=== PATIENT | female | born 1970 | race Two or more races ===

== ENCOUNTER 2023-10-17 08:30 | Inpatient (IN) | payer OTHER ==
[~2023-10-17] VITALS: Ht 165.1 cm; Wt 117.9 kg
[2023-10-17] MEDS ORDERED: PRILOSEC OTC20 MG PO (10:55)
[2023-10-17] MEDS ORDERED: COZAAR25 MG PO (10:55)
[2023-10-17] MEDS ORDERED: PEPCID40 MG PO (10:56)
[2023-10-17] MEDS ORDERED: NORVASC10 MG PO (10:56)
[2023-10-17 11:26] LABS: URINE APPEARANCE Cloudy; URINE BILIRRUBIN Negative (NEGATIVE); URINE BLOOD Negative; URINE COLOR Yellow; URINE GLUCOSE Negative (NEGATIVE); URINE LEUKOCYTE Small; URINE NITRATE Negative; URINE PROTEIN Negative (NEGATIVE); URINE UROBILINOGEN 0.2 E.U./dl
[2023-10-17 11:36] LABS: HEMATOCRIT 43.8 % (36.0-45.00); HEMOGLOBIN 14.6 g/dL (12.0-15.00); MEAN CELL VOLUME 87.1 fL (80.00-100.00); MEAN CORPUSCULAR HEMOGLOBIN 29.1 pg (27.00-32.0); MEAN CORPUSCULAR HGB CONC 33.4 g/dl (32.0-36.0); PLATELET COUNT 293 K/uL (150-450); RED BLOOD COUNT 5.02 M/uL (4.00-6.00); RED CELL DISTRIBUTION WIDTH 13.5 % (11.5-14.5)
[2023-10-17 11:36] LABS: URINE BACTERIA 6183.9 uL (0.0-1933); URINE RBC 39.2 uL (0.0-20.8); URINE WBC 74.3 uL (0.0-23.2)
[2023-10-17 11:47] LABS: PARTIAL THROMBOPLASTIN TIME 28.7 SECONDS (22.0-34.0); PROTHROMBIN TIME 10.5 SECONDS (9.0-11.5)
[2023-10-17 11:50] LABS: ALBUMIN 4.1 gm/dL (3.4-5.0); BILIRUBIN TOTAL 0.36 mg/dL (0.3-1.2); CREATININE SERUM 0.78 mg/dL (0.55-1.02); GFR 77.55; GLOBULINA 3.3 G/DL (2.4-3.5); POTASSIUM 4.65 mEq/L (3.5-5.1); TOTAL PROTEIN 7.4 gm/dL (6.4-8.2)
[2023-10-17 11:51] LABS: URINE CRYSTALS FEW /HPF
[2023-10-25 06:14] LABS: HEMATOCRIT 35.9 % (36.0-45.00); HEMOGLOBIN 12.2 g/dL (12.0-15.00); MEAN CELL VOLUME 85.6 fL (80.00-100.00); MEAN CORPUSCULAR HEMOGLOBIN 29.1 pg (27.00-32.0); PLATELET COUNT 213 K/uL (150-450); RED CELL DISTRIBUTION WIDTH 13.6 % (11.5-14.5)
[2023-10-25] MEDS ORDERED: DUI500 PO (07:41)
[2023-10-25] MEDS ORDERED: PERCOCET 5-3251 EACH PO (07:41)
[2023-10-25] MEDS ORDERED: ELIQUIS2.5 MG PO (07:41)
[2023-10-25 12:47] LABS: ALBUMIN 3.6 gm/dL (3.4-5.0); BILIRUBIN TOTAL 0.68 mg/dL (0.3-1.2); CALCIUM 8.4 mg/dL (8.5-10.1); CREATININE SERUM 0.74 mg/dL (0.55-1.02); GFR 82.41; GLOBULINA 2.8 G/DL (2.4-3.5); POTASSIUM 4.15 mEq/L (3.5-5.1); TOTAL PROTEIN 6.4 gm/dL (6.4-8.2)
[2023-10-26 07:03] LABS: HEMOGLOBIN 12.5 g/dL (12.0-15.00); MEAN CELL VOLUME 86.9 fL (80.00-100.00); MEAN CORPUSCULAR HEMOGLOBIN 29.4 pg (27.00-32.0); MEAN CORPUSCULAR HGB CONC 33.9 g/dl (32.0-36.0); PLATELET COUNT 211 K/uL (150-450); RED BLOOD COUNT 4.26 M/uL (4.00-6.00); RED CELL DISTRIBUTION WIDTH 13.3 % (11.5-14.5)
== END 2023-10-26 20:13 | DRG 470 ==
LOC: O/R 10-24 06:00 → SURH 10-24 06:00
PROVIDERS: ADMIT Orthopaedic Surgery; ATTEND Orthopaedic Surgery
PROC: 3E0F7SF Introduction of Other Gas into Respiratory Tract, Via Natural or Artificial Opening (ICD-10-PCS; 2023-10-24)
PROC: 0SRD0J9 Replacement of Left Knee Joint with Synthetic Substitute, Cemented, Open Approach (ICD-10-PCS; principal; 2023-10-24 12:30)
DX: M17.12 Unilateral primary osteoarthritis, left knee (principal); M22.12 Recurrent subluxation of patella, left knee; I10 Essential (primary) hypertension

== ENCOUNTER 2024-08-09 03:50 | Emergency (ER) | payer OTHER ==
[~2024-08-09] VITALS: Ht 165.1 cm; Wt 113.4 kg
[~2024-08-09 03:50] MED LIST: COZAAR25 MG PO; DUI500 PO; ELIQUIS2.5 MG PO; NORVASC10 MG PO; PEPCID40 MG PO; PERCOCET 5-3251 EACH PO; PRILOSEC OTC20 MG PO
[2024-08-09 04:13] VITALS: BP 127/86; O2SAT 97
[2024-08-09] MEDS ORDERED: KETOROLAC TROMETHAMINE 60 MG VIAL IM STA (06:59)
[2024-08-09] MEDS ORDERED: OxyCODONE HCL/APAP UD (PERCOCET) PO STA (07:00)
[2024-08-09] MEDS ORDERED: KETO10TA2 PO (12:08)
== END 2024-08-09 12:49 | disposition home or self-care (01) ==
LOC: ER 03:52
DX: S80.02XA Contusion of left knee, initial encounter (principal); S80.01XA Contusion of right knee, initial encounter; W18.39XA Other fall on same level, initial encounter; Y93.89 Activity, other specified; Y92.018 Other place in single-family (private) house as the place of occurrence of the external cause; Y99.9 Unspecified external cause status; Z96.653 Presence of artificial knee joint, bilateral